=== PATIENT | female | born 1995 | race Caucasian/White ===

== ENCOUNTER 2020-10-21 19:06 | Inpatient (IN) | payer OTHER ==
[2020-10-21 19:35] VITALS: BMI 29.2
[2020-10-21 20:04] LABS: Amnisure Test RUPTURE DETECTED (No Rupture)
[2020-10-21] MEDS ORDERED: Misoprostol 200 MCG TAB PR PRN (20:28)
[2020-10-21] MEDS ORDERED: Ondansetron PF 4 MG/2 ML Vial IVP PRN ×2 (20:28→23:19)
[2020-10-21] MEDS ORDERED: hydrALAZINE 20 MG/ML VIAL SLOW IVP PRN (20:28)
[2020-10-21] MEDS ORDERED: Butorphanol Tartrate 1 MG/ML VIAL SLOW IVP PRN (20:28)
[2020-10-21] MEDS ORDERED: Lidocaine 1% (PF) 30 ML VIAL SC PRN (20:28)
[2020-10-21] MEDS ORDERED: Ibuprofen 800 MG TAB PO PRN (20:28)
[2020-10-21] MEDS ORDERED: HYDROcodone/Acetaminophen 5/325 mg Tablet PO PRN ×2 (20:28)
[2020-10-21] MEDS ORDERED: Promethazine HCl 25 MG/ML VIAL IM PRN ×2 (20:28→23:19)
[2020-10-21] MEDS ORDERED: NS w/ Oxytocin 30 units 500 ML IV SCH (20:30)
[2020-10-21] MEDS ORDERED: Lactated Ringer's 1,000 ML IV PRN (21:15)
[2020-10-21 21:28] LABS: Hemoglobin 13.7 g/dL (12.0-15.5); Mean Corpuscular HGB CONC 33.3 g/dL (32.0-36.0); Mean Corpuscular Hemoglobin 30.5 pg (27.0-33.0); Mean Corpuscular Volume 91.5 fl (81.6-98.3); Mean Platelet Volume 12.9 fl (7.4-10.4); Platelet Count 113 10x3/uL (150-450); RBC Distribution Width 14.5 % (11.5-14.5); Red Blood Cell (RBC) Count 4.49 10x6/uL (3.90-5.03); White Blood Cell (WBC) Count 16.2 10x3/uL (3.5-10.5)
[2020-10-21 21:57] LABS: Hep B Surf Ag Non-Reactive S/CO (NonReactive); Syphilis Antibody Nonreactive (Nonreactive); Syphilis Antibody Index 0.04 S/CO (<1.00 Non-Reactive)
[2020-10-21 22:03] LABS: HBSAg Index 0.17 S/CO (0-0.99)
[2020-10-21] MEDS ORDERED: Fentanyl 4 mcg/Bup 0.1% Cadd 100 ML ONE (22:50)
[2020-10-21] MEDS ORDERED: Naloxone HCl 0.4 mg/ml Vial IVP PRN ×2 (23:19)
[2020-10-21] MEDS ORDERED: Lactated Ringer's 500 ML IV PRN (23:19)
[2020-10-21] MEDS ORDERED: Eucerin (Mineral Oil/Petrolatum,White) 30 gm Jar TOP PRN (23:19)
[2020-10-21] MEDS ORDERED: Acetaminophen 325 MG TAB PO PRN (23:19)
[2020-10-21] MEDS ORDERED: ePHEDrine 50 MG/ML VIAL SLOW IVP PRN (23:19)
[2020-10-21] MEDS ORDERED: diphenhydrAMINE 50 MG/ML VIAL IVP PRN (23:19)
[2020-10-21] MEDS ORDERED: Communication Order-Pharmacy FS SCH (23:30)
[2020-10-21] MEDS ORDERED: Fentanyl 4 mcg/Bupivacaine 0.1% Cassette 100 ML EPIDURAL SCH (23:30)
[2020-10-22] MEDS ORDERED: Fentanyl 4 mcg/Bup 0.1% Cadd 100 ML ONE ×2 (05:51→12:04)
[2020-10-22] MEDS ORDERED: Lanolin Ointment 7 GM TUBE TOP PRN (16:15)
[2020-10-22] MEDS ORDERED: HYDROcodone/Acetaminophen 5/325 mg Tablet PO PRN (16:15)
[2020-10-22] MEDS ORDERED: Misoprostol 200 MCG TAB VAG PRN (16:15)
[2020-10-22] MEDS ORDERED: Bisacodyl 10 MG SUPP PR PRN (16:15)
[2020-10-22] MEDS ORDERED: Benzocaine-Menthol 82.5 ML CAN TOP PRN (16:15)
[2020-10-22] MEDS ORDERED: hydrALAZINE 20 MG/ML VIAL SLOW IVP PRN (16:15)
[2020-10-22] MEDS ORDERED: Adacel (T-DAP) 0.5 ML SYRINGE IM ONE (16:15)
[2020-10-22] MEDS ORDERED: Milk Of Magnesia 30 ML UDCUP PO PRN (16:15)
[2020-10-22] MEDS ORDERED: Zolpidem Tartrate 5 MG TAB PO PRN (16:15)
[2020-10-22] MEDS ORDERED: Promethazine HCl 25 MG/ML VIAL IM PRN (16:15)
[2020-10-22] MEDS: HYDROcodone/Acetaminophen 5/325 mg Tablet PO PRN ×2 (17:15→21:31)
[2020-10-22 17:47] LABS: SARS-CoV-2 PCR NAA for Saliva Not Detected (NotDetected)
[2020-10-22] MEDS: Ferrous Sulfate 325 MG TAB PO SCH (18:13)
[2020-10-22] MEDS: Ibuprofen 800 MG TAB PO SCH (21:30)
[2020-10-22] MEDS: Docusate Calcium (SURFAK) 240 MG CAP PO SCH (21:30)
[2020-10-23] MEDS: HYDROcodone/Acetaminophen 5/325 mg Tablet PO PRN (02:34)
[2020-10-23] MEDS: Ibuprofen 800 MG TAB PO SCH ×3 (05:27→14:35)
[2020-10-23 05:29] VITALS: TEMP 98.2
[2020-10-23] MEDS: Ferrous Sulfate 325 MG TAB PO SCH ×2 (07:38→17:14)
[2020-10-23] MEDS ORDERED: Prenatal Vitamin 1 TAB PO SCH (09:00)
[2020-10-23] MEDS: Docusate Calcium (SURFAK) 240 MG CAP PO SCH (09:08)
[2020-10-23 13:54] VITALS: BP 104/60
== END 2020-10-23 17:40 | disposition home or self-care (01) | DRG 806 ==
LOC: CSHLD 19:06 → CSHPP 10-22 17:40
PROVIDERS: ADMIT Obstetrics & Gynecology; ATTEND Obstetrics & Gynecology
PROC: 4A0HXCZ Measurement of Products of Conception, Cardiac Rate, External Approach (ICD-10-PCS; principal; 2020-10-23)
PROC: 10E0XZZ Delivery of Products of Conception, External Approach (ICD-10-PCS; 2020-10-23)
PROC: 10H07YZ Insertion of Other Device into Products of Conception, Via Natural or Artificial Opening (ICD-10-PCS; 2020-10-23)
PROC: 0UQGXZZ Repair Vagina, External Approach (ICD-10-PCS; 2020-10-23)
PROC: 0UQMXZZ Repair Vulva, External Approach (ICD-10-PCS; 2020-10-23)
DX: O62.9 Abnormality of forces of labor, unspecified (principal); O71.4 Obstetric high vaginal laceration alone; Z37.0 Single live birth; Z3A.40 40 weeks gestation of pregnancy
CPT/HCPCS: 36415; 51702; 84112; 85027; 86780; 86850; 86900; 86901; 87340; 87635; 99285; J2001; J2590; U0003; U0005

== ENCOUNTER 2023-09-01 10:04 | Inpatient (IN) | payer OTHER ==
[~2023-09-01 10:04] MED LIST: Bupivacaine 0.25% HCL 30 ML VIAL ONE
[2023-09-01] MEDS ORDERED: Promethazine HCl 25 MG/ML VIAL IM PRN ×2 (10:39→12:19)
[2023-09-01] MEDS ORDERED: Methylergonovine 0.2 MG/ML VIAL IM PRN (10:39)
[2023-09-01] MEDS ORDERED: Carboprost 250 MCG/ML AMP IM PRN (10:39)
[2023-09-01] MEDS ORDERED: Ondansetron PF 4 MG/2 ML Vial IVP PRN ×2 (10:39→12:19)
[2023-09-01] MEDS ORDERED: Tranexamic Acid 1,000 MG/10 ML VIAL IVP PRN (10:39)
[2023-09-01] MEDS ORDERED: hydrALAZINE 20 MG/ML VIAL SLOW IVP PRN ×2 (10:39→21:43)
[2023-09-01] MEDS ORDERED: Lidocaine 1% (PF) 30 ML VIAL SC PRN (10:39)
[2023-09-01] MEDS ORDERED: Lactated Ringer's 1,000 ML IV SCH (10:45)
[2023-09-01 10:46] VITALS: BMI 30.5
[2023-09-01 11:08] LABS: Hematocrit 39.9 % (34.9-44.5); Hemoglobin 13.3 g/dL (12.0-15.5); Mean Corpuscular HGB CONC 33.3 g/dL (32.0-36.0); Mean Corpuscular Hemoglobin 29.2 pg (27.0-33.0); Mean Corpuscular Volume 87.5 fl (81.6-98.3); Platelet Count 144 10x3/uL (150-450); Red Blood Cell (RBC) Count 4.56 10x6/uL (3.90-5.03)
[2023-09-01 12:08] LABS: Syphilis Antibody Nonreactive (Nonreactive); Syphilis Antibody Index 0.05 S/CO (<1.00 Non-Reactive)
[2023-09-01 12:09] LABS: HBSAg Index 0.21 S/CO (0-0.99); Hep B Surf Ag - L&D Non-Reactive S/CO (NonReactive)
[2023-09-01] MEDS: fentaNYL/Ropivacaine Epidural 100 ML ONE (12:12)
[2023-09-01] MEDS ORDERED: ePHEDrine Sulfate 50 MG/10 ML VIAL SLOW IVP PRN (12:19)
[2023-09-01] MEDS ORDERED: Naloxone HCl 0.4 mg/ml Vial IVP PRN ×2 (12:19)
[2023-09-01] MEDS ORDERED: Acetaminophen 325 MG TAB PO PRN (12:19)
[2023-09-01] MEDS ORDERED: Moisturizing Cream (Eucerin) 113 GM JAR TOP PRN (12:19)
[2023-09-01] MEDS ORDERED: diphenhydrAMINE 50 MG/ML VIAL IVP PRN (12:19)
[2023-09-01] MEDS ORDERED: Lactated Ringer's 500 ML IV PRN (12:19)
[2023-09-01] MEDS ORDERED: Communication Order-Pharmacy FS SCH (12:30)
[2023-09-01] MEDS ORDERED: fentaNYL 2 mcg/Ropivacaine 0.2% Epidural 100 ML CADD EPIDURAL SCH (12:30)
[2023-09-01] MEDS: fentaNYL 50 mcg/mL 1 mL Vial SLOW IVP PRN (14:00)
[2023-09-01] MEDS: Misoprostol 200 MCG TAB PR PRN (19:10)
[2023-09-01] MEDS: Ibuprofen 800 MG TAB PO PRN (19:34)
[2023-09-01] MEDS: Oxytocin 30 units/NS 500 ML 500 ML IV SCH (19:35)
[2023-09-01] MEDS ORDERED: HYDROcodone/Acetaminophen 5/325 mg Tablet PO PRN ×2 (21:43)
[2023-09-01] MEDS ORDERED: Milk Of Magnesia 30 ML UDCUP PO PRN (21:43)
[2023-09-01] MEDS ORDERED: Bisacodyl 10 MG SUPP PR PRN (21:43)
[2023-09-01] MEDS ORDERED: Misoprostol 200 MCG TAB VAG PRN (21:43)
[2023-09-01] MEDS ORDERED: Benzocaine-Menthol 82.5 ML CAN TOP PRN (21:43)
[2023-09-01] MEDS: Ferrous Sulfate 325 MG TAB PO SCH (22:12)
[2023-09-01] MEDS: Docusate 100 MG CAP PO SCH (22:12)
[2023-09-01] MEDS: Boostrix 0.5 ML (Tdap) VIAL (>/=7 yrs of age) IM ONE (22:12)
[2023-09-02] MEDS: Ibuprofen 800 MG TAB PO SCH (04:10)
[2023-09-02] MEDS: Ferrous Sulfate 325 MG TAB PO SCH (07:20)
[2023-09-02] MEDS: Docusate 100 MG CAP PO SCH (09:41)
[2023-09-02] MEDS: Prenatal Vitamin 1 TAB PO SCH (09:43)
[2023-09-02 17:15] VITALS: BP 106/59; TEMP 98.2
== END 2023-09-02 19:15 | disposition home or self-care (01) | DRG 807 ==
LOC: CSHLD/OP 10:04 → CSHLD 16:57 → CSHPP 21:30
PROVIDERS: ADMIT Obstetrics & Gynecology; ATTEND Obstetrics & Gynecology
PROC: 10E0XZZ Delivery of Products of Conception, External Approach (ICD-10-PCS; principal; 2023-09-01)
PROC: 0UQGXZZ Repair Vagina, External Approach (ICD-10-PCS; 2023-09-01)
DX: O71.4 Obstetric high vaginal laceration alone (principal); Z37.0 Single live birth; Z3A.39 39 weeks gestation of pregnancy; Z91.010 Allergy to peanuts; Z91.018 Allergy to other foods
CPT/HCPCS: 36415; 85027; 86780; 86850; 86900; 86901; 87340; J0665; J2590; J3010

== ENCOUNTER 2023-11-29 08:33 | Day surgery (SDC) | payer OTHER ==
[2023-11-27 12:39] VITALS: BMI 24.0
[2023-11-29] MEDS ORDERED: EPINEPHrine 1 MG/ML VIAL ONE (08:55)
[2023-11-29] MEDS ORDERED: Bupivacaine PF 0.5% 30 ML VIAL ONE (08:56)
[2023-11-29] MEDS ORDERED: Scopolamine 1 mg/72 hour Patch ONE (09:30)
[2023-11-29] MEDS ORDERED: CEFAZOLIN 2 GM VIAL ONE (09:42)
[2023-11-29] MEDS ORDERED: Dexamethasone 4 mg/ml Vial ONE (09:46)
[2023-11-29] MEDS ORDERED: PROPOFOL 20 ML ONE ×2 (09:46→10:35)
[2023-11-29] MEDS ORDERED: Lidocaine 1% PF 5 ML VIAL ONE (09:46)
[2023-11-29] MEDS ORDERED: Ondansetron PF 4 MG/2 ML Vial ONE (09:46)
[2023-11-29] MEDS ORDERED: Ketorolac Tromethamine 30 MG (1 mL) VIAL ONE (09:46)
[2023-11-29] MEDS ORDERED: fentaNYL 50 mcg/mL 1 mL Vial ONE (09:47)
[2023-11-29] MEDS ORDERED: HYDROcodone/Acetaminophen 5/325 mg Tablet ONE (11:21)
== END 2023-11-29 12:05 | disposition home or self-care (01) ==
LOC: CSHSDC 08:33
PROVIDERS: ATTEND Surgery
PROC: 0WQF0ZZ Repair Abdominal Wall, Open Approach (ICD-10-PCS; principal; 2023-11-29)
DX: K42.9 Umbilical hernia without obstruction or gangrene (principal); F41.9 Anxiety disorder, unspecified; Z79.899 Other long term (current) drug therapy; Z91.010 Allergy to peanuts; Z91.018 Allergy to other foods
CPT/HCPCS: 88302; A6258; J0171; J0665; J1100; J1885; J2405; J2704; J3010